=== PATIENT | male | born 1950 | race Caucasian/White ===

== ENCOUNTER → 2021-11-21 11:11 | Outpatient (CLI) | payer MEDICARE, SELFPAY ==
[2021-11-21 19:30] LABS: Alanine Aminotransferase 21 IU/L (<50); Albumin 4.2 g/dL (3.5-5.0); Albumin Globulin Ratio 1.6 (1.0-2.8); Alkaline Phosphatase 75 U/L (38-126); Aspartate Aminotransferase 28 IU/L (17-59); Bilirubin Total 2.3 mg/dL (0.2-1.3); Blood Urea Nitrogen 13 mg/dL (9-20); Carbon Dioxide 28 mmol/L (22-32); Chloride 102 mmol/L (98-107); Cholesterol 160 mg/dL (140-199); Estimated Glomerular Filt Rate > 60 mL/min (>60); Globulin 2.6 g/dL (1.7-4.1); Glucose 126 mg/dL (80-110); HDL Cholesterol 58 mg/dL (40-60); HEMOLYSIS < 15 (0-50); LDL Cholesterol Calculated 87 mg/dL (<100); Potassium 4.1 mmol/L (3.4-5.1); Sodium 136 mmol/L (137-145); Total Protein 6.8 g/dL (6.3-8.2); Triglycerides 75 mg/dL (35-150)
[2021-11-21 19:59] LABS: Prostate Specific Antigen Scrn 3.15 ng/mL (0.1-4.0)
== END ==
PROVIDERS: PCP Family Medicine; Visit Provider Family Medicine
DX: Z12.5 Encounter for screening for malignant neoplasm of prostate (principal); Z13.220 Encounter for screening for lipoid disorders; Z12.11 Encounter for screening for malignant neoplasm of colon
CPT/HCPCS: 80053; 80061; G0103

== ENCOUNTER → 2022-02-21 10:34 | Outpatient (CLI) | payer MEDICARE, SELFPAY ==
[2022-02-21 20:16] LABS: Hemoglobin A1C% w Est Avg Glu 6.3 % (4.0-6.0)
[2022-02-21 20:26] LABS: Alanine Aminotransferase 23 IU/L (<50); Albumin Globulin Ratio 1.6 (1.0-2.8); Alkaline Phosphatase 68 U/L (38-126); Aspartate Aminotransferase 28 IU/L (17-59); BUN Creatinine Ratio 20.2 (6-22); Bilirubin Total 1.2 mg/dL (0.2-1.3); Blood Urea Nitrogen 22 mg/dL (9-20); Calcium 9.3 mg/dL (8.4-10.2); Carbon Dioxide 30 mmol/L (22-32); Chloride 97 mmol/L (98-107); Cholesterol 219 mg/dL (140-199); Estimated Glomerular Filt Rate > 60 mL/min (>60); Globulin 2.5 g/dL (1.7-4.1); Glucose 135 mg/dL (80-110); HDL Cholesterol 55 mg/dL (40-60); HEMOLYSIS < 15 (0-50); LDL Cholesterol Calculated 153 mg/dL (<100); Potassium 4.4 mmol/L (3.4-5.1); Sodium 133 mmol/L (137-145); Total Protein 6.5 g/dL (6.3-8.2); Triglycerides 54 mg/dL (35-150)
[2022-02-21 20:32] LABS: NT-proBNP (BNP-Adult 18+) 269 pg/mL (<125)
== END ==
PROVIDERS: PCP Family Medicine; Visit Provider Family Medicine
DX: I10 Essential (primary) hypertension (principal); R17 Unspecified jaundice; R60.0 Localized edema; R73.9 Hyperglycemia, unspecified; Z13.220 Encounter for screening for lipoid disorders; Z13.6 Encounter for screening for cardiovascular disorders
CPT/HCPCS: 80053; 80061; 83036; 83880

== ENCOUNTER → 2022-04-24 10:36 | Outpatient (CLI) | payer MEDICARE, SELFPAY ==
[2022-04-24 20:08] LABS: BUN Creatinine Ratio 15.6 (6-22); Blood Urea Nitrogen 14 mg/dL (9-20); Cholesterol 146 mg/dL (140-199); Estimated Glomerular Filt Rate > 60 mL/min (>60); HDL Cholesterol 57 mg/dL (40-60); LDL Cholesterol Calculated 73 mg/dL (<100); Triglycerides 80 mg/dL (35-150)
== END ==
PROVIDERS: PCP Family Medicine; Visit Provider Family Medicine
DX: E78.5 Hyperlipidemia, unspecified (principal); I10 Essential (primary) hypertension
CPT/HCPCS: 80061; 82565; 84520

== ENCOUNTER → 2022-12-13 10:20 | Outpatient (CLI) | payer MEDICARE, SELFPAY ==
[2022-12-13 19:41] LABS: Add Manual Diff / Slide Review NO; Basophils Absolute Auto 100 /uL (0-100); Basophils Percent Auto 0.9 % (0-2); Eosinophils Absolute Auto 100 /uL (0-450); Eosinophils Percent Auto 1.5 % (2-4); Hematocrit 40.9 % (41-53); Hemoglobin 14.4 g/dL (13.5-17.5); Lymphocytes Absolute Auto 2000 /uL (1100-4500); Mean Corpuscular HGB Conc 35.1 % (30-36); Mean Corpuscular Hemoglobin 30.1 PG (26-34); Mean Corpuscular Volume 85.7 fL (80-100); Monocytes Absolute Auto 500 /uL (0-900); Monocytes Percent Auto 7.1 % (3-14); Neutrophils Absolute Auto 3700 /uL (1500-7000); Neutrophils Percent Auto 58.5 % (50-75); Platelet Count 263 X10^3/uL (150-400); Red Blood Cell Count 4.78 X10^6/uL (4.5-5.9); Red Cell Distribution Width 13.7 % (11.6-14.8); White Blood Cell Count 6.4 X10^3/uL (4.5-11.0)
[2022-12-13 19:56] LABS: Alanine Aminotransferase 30 IU/L (<50); Albumin Globulin Ratio 1.5 (1.0-2.8); Alkaline Phosphatase 79 U/L (38-126); Aspartate Aminotransferase 32 IU/L (17-59); BUN Creatinine Ratio 16.9 (6-22); Bilirubin Total 1.9 mg/dL (0.2-1.3); Blood Urea Nitrogen 14 mg/dL (9-20); Carbon Dioxide 30 mmol/L (22-32); Chloride 96 mmol/L (98-107); Cholesterol 137 mg/dL (140-199); Estimated Glomerular Filt Rate > 60 mL/min (>60); Globulin 2.7 g/dL (1.7-4.1); Glucose 125 mg/dL (80-110); HDL Cholesterol 50 mg/dL (40-60); HEMOLYSIS < 15 (0-50); LDL Cholesterol Calculated 73 mg/dL (<100); Potassium 4.6 mmol/L (3.4-5.1); Sodium 131 mmol/L (137-145); Total Protein 6.7 g/dL (6.3-8.2); Triglycerides 68 mg/dL (35-150)
[2022-12-13 20:13] LABS: Creatinine Urine Random 174.3 mg/dL
[2022-12-13 20:17] LABS: Microalbumin Urine Random 1.4 mg/dL (0-1.6)
[2022-12-15 02:02] LABS: x Labcorp Estim. Avg Glu (eAG) 131 mg/dL (.); x Labcorp Hemoglobin A1c 6.2 % (4.8-5.6)
== END ==
PROVIDERS: PCP Family Medicine; Visit Provider Family Medicine
DX: R73.03 Prediabetes (principal); E78.2 Mixed hyperlipidemia; I10 Essential (primary) hypertension; R16.0 Hepatomegaly, not elsewhere classified; R17 Unspecified jaundice
CPT/HCPCS: 80053; 80061; 82043; 82570; 83036; 85025

== ENCOUNTER → 2023-12-19 09:26 | Outpatient (CLI) | payer MEDICARE, SELFPAY ==
[2023-12-19 19:33] LABS: Add Manual Diff / Slide Review NO; Basophils Absolute Auto 100 /uL (0-100); Basophils Percent Auto 0.8 % (0-2); Eosinophils Absolute Auto 100 /uL (0-450); Eosinophils Percent Auto 1.4 % (2-4); Hemoglobin 12.6 g/dL (13.5-17.5); Lymphocytes Absolute Auto 1700 /uL (1100-4500); Lymphocytes Percent Auto 22.5 % (25-40); Mean Corpuscular Volume 88.6 fL (80-100); Monocytes Absolute Auto 600 /uL (0-900); Monocytes Percent Auto 8.2 % (3-14); Neutrophils Absolute Auto 5000 /uL (1500-7000); Neutrophils Percent Auto 67.1 % (50-75); Platelet Count 298 X10^3/uL (150-400); Red Blood Cell Count 4.06 X10^6/uL (4.5-5.9); Red Cell Distribution Width 13.9 % (11.6-14.8); White Blood Cell Count 7.4 X10^3/uL (4.5-11.0)
[2023-12-19 20:14] LABS: Creatinine Urine Random 163.31 mg/dL
[2023-12-19 20:18] LABS: Alanine Aminotransferase 22 IU/L (<50); Albumin 4.1 g/dL (3.5-5.0); Albumin Globulin Ratio 1.7 (1.0-2.8); Alkaline Phosphatase 84 U/L (38-126); Aspartate Aminotransferase 34 IU/L (17-59); BUN Creatinine Ratio 17.8 (6-22); Bilirubin Total 4.1 mg/dL (0.2-1.3); Blood Urea Nitrogen 16 mg/dL (9-20); Calcium 9.3 mg/dL (8.4-10.2); Carbon Dioxide 31 mmol/L (22-32); Chloride 99 mmol/L (98-107); Cholesterol 153 mg/dL (140-199); Estimated Glomerular Filt Rate > 60 mL/min (>60); Globulin 2.4 g/dL (1.7-4.1); Glucose 134 mg/dL (80-110); HDL Cholesterol 66 mg/dL (40-60); HEMOLYSIS < 15 (0-50); LDL Cholesterol Calculated 72 mg/dL (<100); Potassium 4.2 mmol/L (3.4-5.1); Sodium 134 mmol/L (137-145); Total Protein 6.5 g/dL (6.3-8.2); Triglycerides 77 mg/dL (35-150)
[2023-12-19 21:04] LABS: Hemoglobin A1C% w Est Avg Glu 6.2 % (4.0-6.0)
== END ==
PROVIDERS: PCP Family Medicine; Visit Provider Family Medicine
DX: R73.03 Prediabetes (principal); I10 Essential (primary) hypertension; E78.5 Hyperlipidemia, unspecified; R17 Unspecified jaundice; E87.1 Hypo-osmolality and hyponatremia; E78.2 Mixed hyperlipidemia
CPT/HCPCS: 80053; 80061; 82043; 82570; 83036; 85025

== ENCOUNTER 2024-01-09 13:16 | Day surgery (SDC) | payer MEDICARE, SELFPAY ==
[2024-01-04 08:31] VITALS: BMI 36.2
[2024-01-09 14:50] VITALS: BP 167/87; PULSE 71; RESP 20; TEMP 36.6; O2SAT 100; BMI 36.2
[2024-01-09] MEDS: LACTATED RINGERS 1,000 ML 42 ML IV (15:01)
--- NOTE | 2024-01-09 17:07 | PM.PREOP ---
Pre-operative Note Interval Note History & Physical reviewed/Exam performed by Physician: Yes Changes to H&P: No
[2024-01-09] MEDS: CEFAZOLIN 2 GM/100 ML PREMIX 100 ML IV (17:24)
--- NOTE | 2024-01-09 17:36 | SUR.OPER ---
Lateral on a nelson bag, head on pillow, gel axillary roll in place, bottom leg bent with gel pad under knee to foot, upper leg straight and supported with pillows. Upper arm supported by pillows and secured over bottom arm to padded arm board. Safety belt at hip, tape over blanket lower legs.
[2024-01-09] MEDS: DOXYCYCLINE 100 MG VIAL INJ ×2 (17:51)
[2024-01-09 18:00] VITALS: BP 130/72; PULSE 72; RESP 20; TEMP 36.6; O2SAT 98
[2024-01-09 18:05] VITALS: BP 139/69; PULSE 69; RESP 11; TEMP 36.6; O2SAT 97
[2024-01-09] MEDS: BUPIVACAINE 0.25% (PF) VIAL 30 ML INJ (18:08)
[2024-01-09] MEDS: HYDROCODONE/ACET 5/325 TABLET 1 TAB PO (18:10)
[2024-01-09 18:11] VITALS: BP 139/69; PULSE 73; RESP 17; TEMP 36.6; O2SAT 98
--- NOTE | 2024-01-09 18:11 | PM.OP.1 ---
Operative Date/Time/Diagnoses Date of procedure: 01/09/24 Time of procedure: 17:40 Pre-op diagnosis: Large Right thigh hematoma, traumatic [id number] Moral lesion Post-op diagnosis: same Procedure & Clinicians Procedure: Incision and drainage hematoma thigh CPT code 00172 right Same procedure as scheduled: Yes Indications: The patient is a 73-year-old male has a large right posterior thigh hematoma. He fell off a ladder 1 month ago onto his right side. He would substantial bruising very large mass or lump at the right posterior thigh he is unable to sit or lay down on that side and has not improved over a month. He was indicated for evacuation and drainage of his right thigh hematoma and Pina degloving lesion The risks and benefits of the procedure have been discussed with the patient and given the opportunity to ask questions. The risks of surgery include but are not limited to infection, recurrence,, persistence of pain, damage to nerves and blood vessels, DVT, PE, cardiopulmonary complications and . The patient expressed a thorough understanding of the risks and benefits of surgery and has elected to proceed. Consent was signed. Surgeon: Lesvia Avilez Click Yes if Unassisted: Yes Anesthesia Type: General and Local Operative Notes Findings: Large right thigh posterior hematoma proximally 10 x 6 cm. Incision through the skin demonstrated old congealed blood with degloving extending 3-4 cm proximally in posteriorly along extensive incision representing degloving injury. Closure Type: primary Estimated Blood Loss (mL): 50 Blood products transfused: none Tourniquet time (min): 0 Procedure in detail: Patient was seen in the preoperative area site of surgery marked informed consent confirmed. The patient was brought back to the operating room by the anesthesia team and positioned supine on operative table. General anesthesia was administered. The patient was then positioned in the lateral decubitus position with the right side up. An axillary roll was placed. The down leg was padded and an SCD placed. The patient was secured to the table in standard fashion. The right lower extremity was prepped and draped standard sterile fashion a formal time-out procedure was performed confirming patient's side and site of surgery administration of appropriate preoperative antibiotic. All were in agreement. Attention turned to the right thigh the palpable mass was marked out this was posterior right hematoma. Longitudinal incision approximately 6 cm taken across the mass down through the skin subcutaneous tissue. Old hematoma was immediately encountered. This was evacuated into a kidney basin. The hematoma cavity was opened and finger dissection did demonstrate degloving lesion proximally 3-4 cm posterior and proximal. 3 L of saline with the pulsatile lavage was used to irrigate the wound. A large Morgan elevator was used to debride the capsule as well as the Bovie pad. Then a medium Hemovac drain was placed. Then the wound was closed with 2-0 Vicryl and 3-0 nylon suture. A mixture of 100 mg of doxycycline and 5 mL of sterile saline was mixed and then injected into the lesion tacked as a scleroderma versus help irritated tissue for healing and reduce the risk of recurrent collection. Dressing was placed with Aquacel dressing and Tegaderm and gauze around the drain site. Drapes removed patient was awoken from anesthesia and taken to recovery room in good condition there were no immediate complications for this procedure. All counts were correct. Drain was pulled approximately 30 minutes later in the postoperative unit. Complications: none Post-operative Condition: stable Disposition: PACU Plan for aftercare: Weightbear as tolerated. May shower with Aquacel dressing. Drain was discontinued in the PACU. May reinforce dressing as needed. Follow up in 2-3 weeks for suture removal.
[2024-01-09 18:25] VITALS: BP 130/70; PULSE 71; RESP 17; TEMP 36.2; O2SAT 98
== END 2024-01-09 18:35 | disposition home or self-care (01) ==
PROVIDERS: PCP Family Medicine; Referring Provider Orthopaedic Surgery Foot and Ankle Surgery; Visit Provider Orthopaedic Surgery Foot and Ankle Surgery
PROC: (CPT 27301; principal; 2024-01-09 16:15)
DX: S70.11XA Contusion of right thigh, initial encounter (principal); W11.XXXA Fall on and from ladder, initial encounter
CPT/HCPCS: 27301; J0690; J2704; J3010

== ENCOUNTER → 2025-02-18 13:17 | Outpatient (CLI) | payer MEDICARE, OTHER, SELFPAY ==
[2025-02-18 19:41] LABS: Add Manual Diff / Slide Review NO; Hematocrit 42.2 % (41-53); Hemoglobin 14.6 g/dL (13.5-17.5); Lymphocytes Absolute Auto 1800 /uL (1100-4500); Mean Corpuscular HGB Conc 34.7 % (30-36); Mean Corpuscular Hemoglobin 31.2 PG (26-34); Mean Corpuscular Volume 89.9 fL (80-100); Platelet Count 214 X10^3/uL (150-400)
[2025-02-18 20:16] LABS: Microalbumi Creatinin Ratio Ur 32.0 ug/mg CR (<30)
[2025-02-18 20:19] LABS: Alanine Aminotransferase 25 IU/L (<50); Albumin 4.2 g/dL (3.5-5.0); Albumin Globulin Ratio 1.7 (1.0-2.8); Alkaline Phosphatase 74 U/L (38-126); Blood Urea Nitrogen 16 mg/dL (9-20); Calcium 9.3 mg/dL (8.4-10.2); Carbon Dioxide 29 mmol/L (22-32); Chloride 98 mmol/L (98-107); Cholesterol 144 mg/dL (140-199); Estimated Glomerular Filt Rate > 60 mL/min (>60); Globulin 2.5 g/dL (1.7-4.1); Glucose 123 mg/dL (70-99); HDL Cholesterol 68 mg/dL (40-60); HEMOLYSIS 16 (0-50); Potassium 4.1 mmol/L (3.4-5.1); Sodium 135 mmol/L (137-145); Total Protein 6.7 g/dL (6.3-8.2); Triglycerides 67 mg/dL (35-150)
[2025-02-18 20:22] LABS: Hemoglobin A1C% w Est Avg Glu 6.3 % (4.0-6.0)
== END ==
PROVIDERS: PCP Family Medicine; Visit Provider Family Medicine
DX: E78.2 Mixed hyperlipidemia (principal); R73.03 Prediabetes; I10 Essential (primary) hypertension; R17 Unspecified jaundice
CPT/HCPCS: 80048; 80061; 80076; 82043; 82570; 83036; 85025